=== PATIENT | male | born 1945 | race Caucasian/White ===

== ENCOUNTER 2019-12-18 07:52 | Day surgery (SDC) | payer MEDICARE, OTHER ==
[~2019-12-18] VITALS: Ht 185.4 cm; Wt 105.0 kg
[2019-12-18 08:14] LABS: BASOPHILS 0.3 % (0-2); EOSINOPHILS 2.8 % (0-7); HEMATOCRIT 43.9 % (42.0-54.0); HEMOGLOBIN 14.5 g/dL (13.5-17.5); IMMATURE GRANULOCYTES 0.1 % (0-5); LYMPHOCYTES 31.1 % (15-50); MCH 28.2 pg (26.0-34.0); MCV 85.2 fL (80.0-100.0); MEAN PLATELET VOLUME 10.1 fL (7.4-10.4); MONOCYTES 9.3 % (2-11); NEUTROPHILS 56.4 % (40-80); PLATELET COUNT 180 10x3/uL (130-400); RBC 5.15 10x6/uL (4.20-6.10); RDW 13.1 % (11.5-14.5); WBC 7.8 10x3/uL (4.8-10.8)
[2019-12-18 08:22] LABS: ANION GAP 9.1 mmol/L (8-16); CALCIUM 9.2 mg/dL (8.5-10.1); CREATININE - SERUM 1.2 mg/dL (0.6-1.3); POTASSIUM - SERUM 4.1 mmol/L (3.5-5.1)
[2019-12-18 08:53] LABS: APTT 32.4 SECONDS (22.8-39.4); INR 0.95 (0.85-1.17); PROTIME 12.7 SECONDS (11.6-15.0)
[2019-12-18 09:14] VITALS: BP 127/77; Ht 185.4 cm; Wt 105.0 kg
[2019-12-18] MEDS ORDERED: OMEPRAZOLE40 MG PO (09:18)
[2019-12-18] MEDS ORDERED: HYDROCHLOROTHIA25 MG PO (09:18)
[2019-12-18] MEDS ORDERED: CO Q-10200 MG PO (09:20)
[2019-12-18] MEDS ORDERED: PRAVASTATIN (09:20)
--- NOTE | 2019-12-18 12:05 | NUR ---
1145 RETURNED TO 2510 NO PROCEDURE DONE, PT'S IV DC'D WITH CATH INTACT. WATER SERVED. DC INSTS TO FOLLOW UP WITH PCP AND TO HAVE A CT SCAN IN 6 MONTHS TO CHECK FOR GROWTH. RELEASED AMB. WITH .
== END 2019-12-18 11:55 | disposition home or self-care (01) ==
LOC: D.SP 07:52 → D.CT 10:00 → D.SP 10:00
PROVIDERS: Specialist; ATTEND Nurse Practitioner Family
DX: R91.1 Solitary pulmonary nodule (principal); Z53.09 Procedure and treatment not carried out because of other contraindication

== ENCOUNTER → 2020-08-25 15:00 | Outpatient (CLI) | payer MEDICARE, OTHER ==
[2019-12-18 09:14] VITALS: BMI 30.5
[~2020-08-25 15:00] MED LIST: CO Q-10200 MG PO; HYDROCHLOROTHIA25 MG PO; OMEPRAZOLE40 MG PO; PRAVASTATIN
== END | disposition home or self-care (01) ==
LOC: D.CT 15:00
PROVIDERS: ATTEND Nurse Practitioner Family
DX: R91.1 Solitary pulmonary nodule (principal)